=== PATIENT | female | born 1965 | race Two or more races ===

== ENCOUNTER 2022-11-06 15:52 | Emergency (ER) | payer MEDICAID, OTHER ==
[~2022-11-06] VITALS: Ht 165.1 cm; Wt 100.0 kg
[2022-11-06 17:10] VITALS: BP 143/79
[2022-11-06] MEDS ORDERED: KETOROLAC TROMETH 60MG/2ML VIAL IM ONE (17:30)
[2022-11-06] MEDS ORDERED: IBUP800T27 PO (18:01)
[2022-11-06] MEDS ORDERED: METH750T22 PO (18:01)
== END 2022-11-06 18:03 | disposition home or self-care (01) ==
LOC: ER 15:52
DX: S00.03XA Contusion of scalp, initial encounter (principal); S40.011A Contusion of right shoulder, initial encounter; W18.39XA Other fall on same level, initial encounter; Y93.89 Activity, other specified; Y92.89 Other specified places as the place of occurrence of the external cause; Y99.8 Other external cause status
CPT/HCPCS: 70450; 73030; 96372; 99285; J1885